=== PATIENT | male | born 1995 | race Caucasian/White ===

== ENCOUNTER 2016-11-17 23:59 | Emergency (ER) | payer MEDICAID ==
[~2016-11-17] VITALS: Ht 172.7 cm; Wt 80.3 kg
--- NOTE | 2016-11-17 23:59 | NUR ---
Patient BIB [place] [employer] to be evaluated as pre-book, transferred to [facility]. RN evaluating patient.
[2016-11-18 00:09] VITALS: BP 128/69
[2016-11-18 00:18] VITALS: BP 128/69
--- NOTE | 2016-11-18 00:24 | NUR ---
Patient discharged with v/s stable. Written and verbal after care instructions given and explained. Patient alert, oriented and verbalized understanding of instructions. Police with in custody. All questions addressed prior to discharge. ID band removed. Patient advised to follow up with PMD.NO Rx given. Patient educated on indication of medication including possible reaction and side effects. Opportunity to ask questions provided and answered.
== END 2016-11-18 00:24 ==
LOC: MED 23:59
DX: G89.29 Other chronic pain (principal); M54.5 Low back pain; R03.0 Elevated blood-pressure reading, without diagnosis of hypertension; F12.10 Cannabis abuse, uncomplicated
CPT/HCPCS: 99283